=== PATIENT | male | born 1950 | race Caucasian/White ===

== ENCOUNTER → 2018-02-24 | Outpatient (CLI) | payer MEDICARE, BC | LOC: M.RAD 10:43 | DX: M47.895 Other spondylosis, thoracolumbar region (principal); R07.89 Other chest pain ==

== ENCOUNTER → 2018-04-21 | Outpatient (CLI) | payer MEDICARE, BC | LOC: M.RAD 11:09 | DX: N64.4 Mastodynia (principal) ==